=== PATIENT | male | born 1935 | race Caucasian/White ===

== ENCOUNTER → 2019-05-17 | Outpatient (CLI) | payer MEDICARE, BC ==
[~2019-05-17] VITALS: Ht 180.3 cm; Wt 88.9 kg
[~2019-05-17] MED LIST: ALFUZOSIN HCL10 MG PO; ASPIRIN EC81 MG ORAL; COQ-10100 M1 PO; FISH OIL 500 M1 EAC4 PO; K2 PLUS D3 TAB1 EACH PO; KRILL OIL500 MG PO; LEVOXYL100 MCG ORAL; PEPCID AC20 M2 PO; PREVASTATIN PO; PROSCAR5 MG ORAL; VESICARE5 MG ORAL; VITAMIN B-12500 MCG ORAL
[2019-05-17 14:01] VITALS: BP 127/53
--- NOTE | 2019-05-17 21:30 | Consultation ---
DATE OF CONSULTATION: 05/17/2019 CHIEF COMPLAINT: Referral for screening colonoscopy, history of colonic polyps, and chronic GERD. HISTORY: This is an 84-year-old male, who was referred to us by Dr. Florentino for the above complaints. PAST MEDICAL HISTORY: 1. Asthma. 2. Coronary artery disease with cardiac stent many years ago. 3. BPH. 4. Hypothyroidism. 5. GERD. PAST SURGICAL HISTORY: Appendectomy, hernia repair, hemorrhoid repair, and tonsillectomy. MEDICATIONS: Please see medication reconciliation list. FAMILY HISTORY: Father had colon cancer. SOCIAL HISTORY: The patient drinks socially. He is smoking 20 cigarettes per day. No drug abuse. ALLERGIES: No known drug allergies. REVIEW OF SYSTEMS: Positive for constipation. PHYSICAL EXAMINATION: VITAL SIGNS: Temperature 97.8, blood pressure 127/53, pulse 64, and respirations 20. HEENT: Normocephalic and atraumatic. Sclerae anicteric. No evidence of obvious lymphadenopathy. CARDIOVASCULAR: Regular rate and rhythm. Plus Plus S1 and S2. No obvious murmur. LUNGS: Clear to auscultation bilaterally. ABDOMEN: Positive bowel sounds. Soft and nontender. No rebound. No guarding. No peritoneal sign. EXTREMITIES: No cyanosis. No clubbing. No edema. ASSESSMENT AND PLAN: This is an 84-year-old male with a gastroesophageal reflux disease symptoms, currently is only on famotidine 20 mg a day. The patient used to be on omeprazole, but the primary care physician stopped it. According to the patient, he was concerned for osteoporosis. At this time, we will recommend the patient to stop famotidine too. We are going to plan to do an endoscopy for chronic GERD symptoms. We will also plan a colonoscopy given 3 years with number of polyps he had before. I do not have the last colonoscopy report, but the patient is very adamant that Dr. Florentino told him he need to have another colonoscopy this year unless . The patient was given instruction for colonoscopy, the prep, the risks and benefits, and is going to be scheduled hopefully. I wan to thank, Dr. Florentino also for this kind referral. Teddy Russo M.D. DR: PHILOMENA JOB#: [id number] CC: Lolis Florentino M.D. ([facility] [place] Fax#: [phone]
== END | disposition home or self-care (01) ==
LOC: PAN 10:05
DX: K21.9 Gastro-esophageal reflux disease without esophagitis (principal); E03.9 Hypothyroidism, unspecified; I25.10 Atherosclerotic heart disease of native coronary artery without angina pectoris; Z95.5 Presence of coronary angioplasty implant and graft; Z86.010 Personal history of colon polyps; N40.0 Benign prostatic hyperplasia without lower urinary tract symptoms; Z90.89 Acquired absence of other organs; F17.210 Nicotine dependence, cigarettes, uncomplicated

== ENCOUNTER 2019-06-08 07:54 | Day surgery (SDC) | payer MEDICARE, BC ==
[2019-06-08] VITALS (7 sets, daily range): BP systolic 125–140; BP diastolic 62–74
[~2019-06-08] VITALS: Ht 180.3 cm; Wt 83.9 kg
[~2019-06-08 07:54] MED LIST changes: +LR 1000ml 1,000 ML IVLG SCH
--- NOTE | 2019-06-08 08:48 | Anethesia Preoperative Eval ---
Anesthesia Pre-op PMH/ROS General Date of Evaluation: Jun 08, 2019 Time of Evaluation: 08:45 Anesthesiologist: Brielle ASA Score: ASA 2 Mallampati Score Class I : Soft palate, uvula, fauces, pillars visible Class II: Soft palate, uvula, fauces visible Class III: Soft palate, base of uvula visible Class IV: Only hard plate visible Mallampati Classification: Class II Surgeon: Rafaela Diagnosis: Abdominal pain Surgical Procedure: EGD Colonmoscopy Anesthesia History: none Family History: no anesthesia problems Allergies: Coded Allergies: No Known Allergies (Unverified , 05/17/19) Medications: see eMAR Patient NPO?: Yes Past Medical History Cardiovascular: Reports: HTN - mild, CAD - stable stent in; Denies: AL, valve dz, arrhythmia, other Pulmonary: Denies: asthma, COPD, MAXINE, other Gastrointestinal/Genitourinary: Reports: GERD; Denies: CRI, ESRD, other Neurologic/Psychiatric: Denies: dementia, CVA, depression/anxiety, TIA, other Endocrine: Reports: hypothyroidism; Denies: DM, steroids, other HEENT: Reports: cataract (L), cataract (R) - s/p Sx bilateral Hematology/Immune: Denies: anemia, DVT, bleeding disorder, other Musculoskeletal/Integumentary: Reports: OA; Denies: RA, DJD, DDD, edema, other PMH Narrative: as above PSxH Narrative: hernia repairs cataracts Anesthesia Pre-op Phys. Exam Physician Exam Last Vital Signs Date Time Temp Pulse Resp B/P (MAP) Pulse Ox O2 Delivery O2 Flow Rate FiO2 06/08/19 08:36 Room Air 06/08/19 08:28 97.3 66 18 128/68 95 Constitutional: NAD Neurologic: CN 2-12 intact Cardiovascular: RRR, no M/R/G Respiratory: CTA Gastrointestinal: S/NT/ND Airway Exam Mallampati Score: Class II MO: limited Neck: stiff ROM: limited Teeth: missing Dentures: no upper, no lower Anesthesia Pre-op A/P Studies Pre-op Studies: EKG - SR Risk Assessment & Plan Assessment: ASA 2 Plan: MAC Status Change Before Surgery: Gerardo Arceo MD Jun 08, 2019 08:48
[2019-06-08] MEDS ORDERED: Propofol 200mg/20ml IV ONE (09:00)
[2019-06-08] MEDS ORDERED: LR 1000ml ONE (09:00)
[2019-06-08] MEDS ORDERED: fentaNYL 100 mcg/2 mL IV ONE (09:00)
--- NOTE | 2019-06-08 09:02 | Pre-Procedure Note/Attestation ---
Pre-Procedure Note/Attestation Complete Prior to Procedure Planned Procedure: not applicable Procedure Narrative: esophagogastroduodenoscopy and colonoscopy Indications for Procedure Pre-Operative Diagnosis: anemia, duysphagia Attestation I attest that I discussed the nature of the procedure; its benefits; risks and complications; and alternatives (and the risks and benefits of such alternatives ), prior to the procedure, with the patient (or the patient's legal financial foundations representative). I attest that, if there was a reasonable possibility of needing a blood transfusion, the patient (or the patient's legal financial foundations representative) was given the [facility] standardized written summary, pursuant to the Ramos Marci Blood Safety Act ([place] Health and Safety Code # 1645, as amended). I attest that I re-evaluated the patient just prior to the surgery and that there has been no change in the patient's H&P, except as documented below: Teddy Russo MD Jun 08, 2019 09:02
--- NOTE | 2019-06-08 09:11 | Short Stay Surgery H&P ---
History of Present Illness History of Present Illness Chief Complaint dysphagia, anemia see recent office note HPI Rudy Knox is a 84 year old male who was admitted on for Difficulty Swallowing, Hx Of Polyps Patient History Allergies: Coded Allergies: No Known Allergies (Unverified , 05/17/19) Medication History Scheduled Alfuzosin* (Uroxatrol*), 10 MG PO DAILY, (Reported) Aspirin Ec* (Aspirin Ec*), 81 MG ORAL DAILY, (Reported) Cyanocobalamin (Vitamin B-12)* (Vitamin B-12*), 1,000 MCG ORAL DAILY, (Reported) Famotidine (Pepcid Ac), 20 MG PO DAILY, (Reported) Finasteride* (Proscar*), 5 MG ORAL DAILY, (Reported) Levothyroxine Sodium* (Levoxyl*), 100 MCG ORAL DAILY, (Reported) [place] Oil/[place]-3 Fatty Acids (Fish Oil 500 mg Softgel), 1 EACH PO DAILY, ( Reported) Solifenacin Succinate* (Vesicare*), 5 MG ORAL DAILY, (Reported) Ubidecarenone (Coq-10), 100 MG PO DAILY, (Reported) Vitamin D3/Vitamin K2 (Mk4) (K2 Plus D3 Tablet), 1 EACH PO DAILY, (Reported) [Prevastatin], 40 MG PO DAILY, (Reported) Miscellaneous Medications Krill Oil (Krill Oil), Unknown Dose PO, (Reported) Physical Exam Vital Signs Last Vital Signs Date Time Temp Pulse Resp B/P (MAP) Pulse Ox O2 Delivery O2 Flow Rate FiO2 06/08/19 08:36 Room Air 06/08/19 08:28 97.3 66 18 128/68 95 Plan Attestation Are the patient's medical conditions optimized for surgery? Teddy Russo MD Jun 08, 2019 09:11
--- NOTE | 2019-06-08 09:31 | Endoscopy Procedure Note ---
Endoscopy Procedure Note General Indication for Procedure: anemia Procedures Performed: EGD, colonoscopy Operative Findings/Diagnosis: diverticulosis, 2 polyps Specimen: yes Pt Tolerated Procedure Well: Yes Estimated Blood Loss: none Anesthesia Anesthesiologist: dilcia Anesthesia: MAC Inserted Devices Implant(s) used?: No Quality Quality of Bowel Preparation: Good Did scope reach the cecum?: Yes Was there any complications?: No GI Core Measures 50 yrs or older w/o bx or poly: No 10yrs. F/U recommended: Yes If not recommended, why?: Above average risk 18 years or older w/prev. colo: No Teddy Russo MD Jun 08, 2019 09:31
--- NOTE | 2019-06-08 09:38 | Immediate Post-Op Evaluation ---
Immediate Post-Op Evalulation Immediate Post-Op Evalulation Procedure: EGD Colonoscopy polipectomy Date of Evaluation: Jun 08, 2019 Time of Evaluation: 09:37 IV Fluids: 600 Blood Products: none Estimated Blood Loss: none Urinary Output: none Blood Pressure Systolic: 125 Blood Pressure Diastolic: 68 Pulse Rate: 64 Respiratory Rate: 20 O2 Sat by Pulse Oximetry: 98 Temperature (Fahrenheit): 97.6 Pain Score (1-10): 1 Nausea: No Vomiting: No Complications none Patient Status: reacts, patent, none Hydration Status: adequate Gerardo Hannah MD Jun 08, 2019 09:38
--- NOTE | 2019-06-08 11:06 | 48 Hour Post Anesthesia Eval ---
Post Anesthesia Evaluation Procedure: EGD Colonoscopy polipectomy Date of Evaluation: Jun 08, 2019 Time of Evaluation: 11:05 Blood Pressure Systolic: 128 0: 74 Pulse Rate: 72 Respiratory Rate: 20 Temperature (Fahrenheit): 97.6 O2 Sat by Pulse Oximetry: 98 Airway: patent Nausea: No Vomiting: No Pain Intensity: 1 Hydration Status: adequate Cardiopulmonary Status: stable Follow-up Care/Observations: n/a Post-Anesthesia Complications: none Follow-up care needed: ready to discharge Gerardo Hannah MD Jun 08, 2019 11:06
--- NOTE | 2019-06-08 16:15 | Procedure Note ---
DATE OF PROCEDURE: 06/08/2019 SURGEON: Teddy Russo M.D. ANESTHESIOLOGIST: Gerardo Hannah M.D. PROCEDURE: Upper endoscopy with biopsy and colonoscopy with snare polypectomy. ANESTHESIA: Per Dr. Hannah. INSTRUMENT: Olympus adult flexible upper endoscope and colonoscope. The procedure, risks, benefits, and possible consequences, including hemorrhage, aspiration, perforation and infection, and alternative treatments, were explained to the patient/legal guardian by Dr. Teddy Russo and the patient/legal guardian understood and accepted these risks. INDICATION: Abdominal pain, anemia, and dysphagia. DESCRIPTION OF PROCEDURE: After informed consent was obtained and the patient was adequately sedated, Olympus upper endoscope was advanced from the mouth into the second portion of the duodenum and retroflexion was performed in the stomach. GE junction was found to be about 41 cm from the incisors. There was no obvious esophagitis. In the stomach, there was diffuse gastritis. Random biopsy from antrum was obtained to rule out H. pylori infection. In the duodenum, the patient had multiple erosions in the duodenal bulb and second portion of duodenum, nonspecific. At this time, the upper endoscope was retrieved. On the way back, we saw also evidence of questionable eosinophilic esophagitis. Biopsy from distal esophagus was obtained. At this time, the upper endoscope was retrieved. The patient was turned over for colonoscopy. First, rectal exam was performed which was normal. Then, the scope was advanced from the rectum into the cecum documented by the appendix orifice, ileocecal valve, and right upper quadrant palpation. Quality of prep was good. The patient had significant diverticulosis in the left colon. There were 2 polyps in the sigmoid area; one measured about 6 and the other one measured about 5, both removed with hot snare polypectomy technique. The rest of the exam grossly looked within normal limit. Retroflexion of the rectum showed no obvious large internal hemorrhoids. SUMMARY OF FINDINGS: 1. Gastritis, status post biopsy. 2. Questionable eosinophilic esophagitis, status post biopsy. 3. Multiple duodenal erosions. 4. Diverticulosis. 5. Two colonic polyps removed, see above for details. 6. Internal hemorrhoids. RECOMMENDATIONS: Follow up pathology and treat accordingly. Teddy Doroteo Russo DR: Gifty JOB#: [id number] CC:
== END 2019-06-08 10:35 | disposition home or self-care (01) ==
LOC: GAS 07:54
DX: R10.9 Unspecified abdominal pain (principal); D64.9 Anemia, unspecified; R13.10 Dysphagia, unspecified; K57.90 Diverticulosis of intestine, part unspecified, without perforation or abscess without bleeding; K63.5 Polyp of colon; K64.8 Other hemorrhoids; Z79.82 Long term (current) use of aspirin; Z79.899 Other long term (current) drug therapy; I11.9 Hypertensive heart disease without heart failure; Z95.5 Presence of coronary angioplasty implant and graft; K21.9 Gastro-esophageal reflux disease without esophagitis; E03.9 Hypothyroidism, unspecified; M19.90 Unspecified osteoarthritis, unspecified site; K29.50 Unspecified chronic gastritis without bleeding; D12.5 Benign neoplasm of sigmoid colon
CPT/HCPCS: 43239; 45385; 93005; J2704; J3010; 94003; 94150